=== PATIENT | female | born 1950 | race Caucasian/White ===

== ENCOUNTER 2019-09-23 13:47 | Outpatient (CLI) | payer MEDICARE, OTHER, SELFPAY ==
--- NOTE | 2019-09-23 13:58 | MM_ITS ---
WS: [id number] BILATERAL DIGITAL SCREENING MAMMOGRAM WITH CAD CLINICAL INFORMATION: SCREENING HISTORY: Screening mammogram. No current complaints. COMPARISON: January 25, 2011 TECHNIQUE: Bilateral CC and MLO. FINDINGS: The breast are composed of extremely dense tissue, which can limit the detection of small underlying mass lesions. Stable nodular dense breast tissue. No suspicious focal mass, asymmetry, calcifications , or architectural distortion. No evidence of malignancy. MM/[id number] IMPRESSION: BI-RADS: 2-Benign FOLLOW UP: 1 Year Follow-up Recommend return to annual screening mammography.
--- NOTE | 2019-09-23 14:37 | XR_ITS ---
WS: [id number] DEXA (DUAL ENERGY X-RAY ABSORPTIOMETRY) Bone mineral density was performed using a Feedo machine. HISTORY: POST MENOPAUSAL COMPARISON: None available. Lumbar spine BMD (L1-L4): 1.015 g/cm2 T score: -1.4 Z score: 0.8 Total hip BMD: Left: 0.686 g/cm2. T score: -2.6 Z score: -0.8 Right: 0.690 g/cm2. T score: -2.5 Z score: -0.8 10 year probability of a major osteoporotic fracture is 13%. Mild scoliosis lumbar spine. XR/XR DEXA peripheral [id number] IMPRESSION: OSTEOPOROSIS based upon the WHO classification for females.
== END 2019-09-23 13:48 | disposition home or self-care (01) ==
PROVIDERS: PCP Nurse Practitioner; Visit Provider Nurse Practitioner
DX: Z12.31 Encounter for screening mammogram for malignant neoplasm of breast (principal); Z78.0 Asymptomatic menopausal state; M81.0 Age-related osteoporosis without current pathological fracture
CPT/HCPCS: 77067; 77081

== ENCOUNTER 2020-10-26 08:43 | Outpatient (CLI) | payer MEDICARE, OTHER, SELFPAY ==
--- NOTE | 2020-10-26 08:51 | MM_ITS ---
WS: [id number] BILATERAL DIGITAL SCREENING MAMMOGRAPHY WITH CAD CLINICAL INFORMATION: SCREENING HISTORY: Screening mammogram. No current complaints. COMPARISON: September 23, 2019 TECHNIQUE: Bilateral CC and MLO views. FINDINGS: The breasts are composed of heterogeneous fibroglandular density tissue, which can limit the detectio n of small underlying mass lesions. Ovoid nodular densities and nodular dense breast tissue outer lef t breast is unchanged. No suspicious mass, asymmetry, calcifications, or architectural distortion. No evidence of malignancy. MM/[id number] IMPRESSION: BI-RADS: 2-Benign FOLLOW UP: 1 Year Follow-up Recommend return to annual screening mammography.
== END 2020-10-26 08:44 | disposition home or self-care (01) ==
LOC: RADSHAW 08:47
PROVIDERS: PCP Nurse Practitioner; Visit Provider Family Medicine
DX: Z12.31 Encounter for screening mammogram for malignant neoplasm of breast (principal)
CPT/HCPCS: 77067

== ENCOUNTER → 2022-12-09 13:40 | Outpatient (BNVA) | payer MEDICARE, OTHER, SELFPAY | PROVIDERS: PCP Nurse Practitioner; Visit Provider Family Medicine | DX: Z13.6 Encounter for screening for cardiovascular disorders (principal); E03.9 Hypothyroidism, unspecified; Z78.0 Asymptomatic menopausal state | CPT/HCPCS: 80053; 80061; 84443; 85025 ==

== ENCOUNTER 2023-01-06 12:54 | Outpatient (CLI) | payer MEDICARE, OTHER, SELFPAY ==
--- NOTE | 2023-01-06 13:19 | MM_ITS ---
WS: [id number] BILATERAL 3D TOMOSYNTHESIS DIGITAL SCREENING MAMMOGRAPHY WITH CAD CLINICAL INFORMATION: screening HISTORY: Screening mammogram. No current complaints. COMPARISON: 2020 TECHNIQUE: Bilateral CC and MLO views. FINDINGS: The breasts are composed of heterogeneous fibroglandular density tissue, which can limit the detectio n of small underlying mass lesions. No suspicious mass, asymmetry, calcifications, or architectural d istortion. No evidence of malignancy. IMPRESSION: MM/[place] [id number] BI-RADS: 1-Negative FOLLOW UP: 1 Year Follow-up Recommend return to annual screening mammography.
--- NOTE | 2023-01-06 14:00 | XR_ITS ---
WS: [id number] SCREENING DEXA SCAN [employer] CLINICAL INFORMATION: post menopausal COMPARISON: 2019 FINDINGS: The L1-L4 bone mineral density measures 1.09. This corresponds to a T score score of -0.9 and Z score of 1.4. Left femoral neck bone mineral density measures 0.679 g/cm2. This corresponds to a T score of -2.6 an d Z score of -0.7. Right femoral neck bone mineral density measures 0.641 g/cm2. This corresponds to a T score -2.9of an d Z score of -1.0. Mean femoral neck bone mineral density measures 0.660 g/cm2. This corresponds to a T score of -2.8 an d Z score of -0.8. IMPRESSION: Normal bone mineralization lumbar spine approaching osteopenia. Osteoporosis femoral necks. Patient's FRAX calculated 10 year probability for major osteoporotic fracture is 15.2% and osteoporot ic hip fracture is 4.9%. Bone mineral density lumbar spine increased 3.5% Bone mineral density femoral necks decreased -4.1%
== END 2023-01-06 12:55 | disposition home or self-care (01) ==
LOC: RAD 12:54
PROVIDERS: PCP Nurse Practitioner; Visit Provider Family Medicine
DX: Z12.31 Encounter for screening mammogram for malignant neoplasm of breast (principal); Z13.820 Encounter for screening for osteoporosis; Z78.0 Asymptomatic menopausal state; M81.0 Age-related osteoporosis without current pathological fracture
CPT/HCPCS: 77063; 77067; 77080

== ENCOUNTER 2023-01-20 13:50 | Oncology outpatient (recurring) (ONCR) | payer MEDICARE, OTHER, SELFPAY ==
[2023-01-20] MEDS: denosumab 60 mg SDV SUBCUT (14:17)
[2023-01-20 14:19] VITALS: BP 144/83; PULSE 55; RESP 17; TEMP 36.7; O2SAT 99
== END 2023-01-21 23:59 | disposition home or self-care (01) ==
LOC: ONCMED 13:51
PROVIDERS: PCP Nurse Practitioner; Visit Provider Family Medicine
DX: M81.0 Age-related osteoporosis without current pathological fracture (principal)
CPT/HCPCS: 96372; J0897

== ENCOUNTER → 2023-08-26 11:07 | Outpatient (BNVA) | payer MEDICARE, OTHER, SELFPAY | PROVIDERS: PCP Family Medicine; Visit Provider Family Medicine | DX: E03.9 Hypothyroidism, unspecified (principal) | CPT/HCPCS: 84443 ==

== ENCOUNTER 2023-09-16 11:43 | Oncology outpatient (recurring) (ONCR) | payer MEDICARE, SELFPAY ==
[2023-09-16] MEDS: denosumab 60 mg SDV SUBCUT (12:32)
== END 2023-09-21 23:59 | disposition home or self-care (01) ==
LOC: ONCMED 11:44
PROVIDERS: PCP Family Medicine; Visit Provider Family Medicine
DX: M81.0 Age-related osteoporosis without current pathological fracture (principal); Z79.620 Long term (current) use of immunosuppressive biologic
CPT/HCPCS: 96372; J0897

== ENCOUNTER → 2023-12-10 11:20 | Outpatient (BNVA) | payer MEDICARE, SELFPAY | PROVIDERS: PCP Family Medicine | DX: E03.9 Hypothyroidism, unspecified (principal) | CPT/HCPCS: 84443 ==

== ENCOUNTER 2024-01-09 10:00 | Outpatient (CLI) | payer MEDICARE, OTHER, SELFPAY ==
--- NOTE | 2024-01-09 10:00 | MM_ITS ---
WS: [id number] Bilateral screening 3D tomosynthesis digital mammogram, 01/09/2024 10:01 AM Clinical Data: screening for breast cancer Comparison: 01/06/2023, 10/26/2020, 09/23/2019, 02/04/2011, 02/23/2009, 02/23/2008, 02/10/2007, 12/17/2005. Findings: No spiculated masses or clustered calcifications are seen. There are no secondary signs of carcinoma . MM/MM scr BI tomosynthesis [id number] Impression: Negative bilateral mammogram unchanged. Recommend annual screening mammograms. BIRADS: 1 - Negative FOLLOW UP: 1 Year Follow-up DENSITY: The breasts are heterogeneously dense, which may obscure small masses. The CAD cargo checker was used
== END 2024-01-09 10:01 | disposition home or self-care (01) ==
DX: Z12.31 Encounter for screening mammogram for malignant neoplasm of breast (principal)
CPT/HCPCS: 77063; 77067